=== PATIENT | female | born 1950 | race Caucasian/White ===

== ENCOUNTER → 2019-09-10 | Outpatient (CLI) | payer MEDICARE ==
--- NOTE | 2019-09-10 12:45 | Diagnostic Imaging Report ---
HISTORY : Abdominal pain COMPARISON : None COMMENT : Complete ultrasound examination of the abdomen was performed. The liver is normal in size measuring 14.2 cm in length along the right midclavicular line and homogeneous in echo-texture without evidence of a focal mass. The gallbladder appears normal without evidence of stones, sludge, wall thickening or pericholecystic fluid. The biliary tract is within normal limits with the common bile duct measuring 4 mm in maximum diameter. The visualized portions of the pancreas are within normal limits. The spleen is normal in size and echo-texture measuring 9.2 cm. The right kidney measures 8.8 cm and the left kidney 8.6 cm in maximum size. There is no evidence of cysts, masses, stones or hydronephrosis. The portal vein measures to a maximum of 0.9 cm in diameter. There is no ascites or pleural effusion. The visualized inferior vena cava, hepatic veins and abdominal aorta are within normal limits. IMPRESSION : Normal ultrasound of the abdomen. Signed by: John Holman MD on 09/10/2019 12:42 PM
== END ==
LOC: US 11:14
PROVIDERS: ATTEND Internal Medicine
DX: R10.11 Right upper quadrant pain (principal)
CPT/HCPCS: 76700